=== PATIENT | male | born 1965 | race Caucasian/White ===

== ENCOUNTER 2019-06-11 18:48 | Emergency (ER) | payer BC, SELFPAY ==
[2019-06-11 18:58] VITALS: BP 133/95; PULSE 71; RESP 18; TEMP 36.8; O2SAT 98
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
[2019-06-11] MEDS: Ibuprofen 600 MG TAB PO (19:45)
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
[2019-06-11 20:03] VITALS: BP 133/95; PULSE 71; RESP 18; TEMP 36.8; O2SAT 98
== END 2019-06-11 19:41 | disposition home or self-care (01) ==
PROVIDERS: Emergency Provider Emergency Medicine
DX: M25.511 Pain in right shoulder (principal); V17.0XXA Pedal cycle driver injured in collision with fixed or stationary object in nontraffic accident, initial encounter
CPT/HCPCS: 99283; 73030; 99282; L3650